=== PATIENT | male | born 1970 | race African-American/Black ===

== ENCOUNTER 2020-04-08 09:46 | Observation (INO) ==
[2020-04-08 10:23] LABS: Basophils # 0.1 10*3/uL (0.0-0.2); Basophils % 0.4 % (0.0-0.8); Eosinophils # 0.1 10*3/uL (0.0-0.87); Eosinophils % 1.1 % (0.00-10.9); Hematocrit 40.2 VOL% (42.0-52.0); Immature Granulocytes % 0.4 %; Immature Granulocytes Absolute 0.04 #; Lymphocytes # 3.2 10*3/uL (1.4-4.0); Lymphocytes % 28.1 % (21.2-54.2); Mean Corpuscular HGB Conc 32.3 GM/DL (32-36); Mean Corpuscular Volume 92.8 FL (87-102); Mean Platelet Volume 9.3 FL (9.6-12.0); Monocytes % 7.2 % (1.7-12.7); Neutrophils % 62.8 % (38.7-73.9); Platelet Count 355 T/CUMM (130-400); Red Blood Count 4.33 MC/CUMM (3.8-5.5); Red Cell Distribution Width 15.9 % (9.3-17.3); White Blood Count 11.4 T/CUMM (4-12)
[2020-04-08] MEDS ORDERED: ASPIRIN 325 MG TABLET PO STA (10:39)
[2020-04-08 10:44] LABS: Albumin 4.3 G/DL (3.4-5.0); Bilirubin,Total 0.4 MG/DL (0.2-1.0); Osmolality,Calculated 273.7 MOS/KG (273-304); Total Protein 7.6 G/DL (6.4-8.3)
[2020-04-08] MEDS ORDERED: POTASSIUM CHLORIDE 20 MEQ TABLET PO STA (11:38)
[2020-04-08] MEDS ORDERED: DOCUSATE SODIUM 100 MG CAPSULE PO PRN (12:09)
[2020-04-08] MEDS ORDERED: DEXTROSE 50% 25 GM/50 ML VIAL IV PRN ×2 (12:09→14:54)
[2020-04-08] MEDS ORDERED: GLUCAGON 1 MG VIAL IM PRN ×2 (12:09→14:54)
[2020-04-08] MEDS ORDERED: ONDANSETRON 4 MG/2 ML VIAL IV PRN (12:09)
[2020-04-08] MEDS ORDERED: ACETAMINOPHEN 325 MG TABLET PO PRN (12:09)
[2020-04-08] MEDS ORDERED: NICOTINE 21 MG/24 HR PATCH TRANSDERM PRN (12:21)
[2020-04-08] MEDS ORDERED: ENOXAPARIN 40 MG/0.4 ML SYRINGE SUBCUT SCH (12:30)
[2020-04-08 13:12] LABS: Risk Ratio 2.84; Thyroid Stimulating Hormone 0.799 uIU/ml (0.358-3.74); VLDL CHOLESTEROL 22.2 MG/DL
[2020-04-08] MEDS ORDERED: KETOROLAC 30 MG/1 ML VIAL IV ONE (13:53)
[2020-04-08] MEDS ORDERED: ALUMINUM/MAGNES/SIMETH MAX STR 30 ML UDCUP PO PRN (14:53)
[2020-04-08] MEDS: INSULIN LISPRO 100 UNIT/ML SUBCUT SCH ×2 (17:12→20:04)
[2020-04-09 06:17] LABS: Basophils % 0.5 % (0.0-0.8); Eosinophils # 0.1 10*3/uL (0.0-0.87); Eosinophils % 1.9 % (0.00-10.9); Hematocrit 38.2 VOL% (42.0-52.0); Hemoglobin 12.7 GM/DL (14.0-18.0); Immature Granulocytes % 0.4 %; Immature Granulocytes Absolute 0.03 #; Lymphocytes # 2.8 10*3/uL (1.4-4.0); Lymphocytes % 37.3 % (21.2-54.2); Mean Corpuscular HGB Conc 33.2 GM/DL (32-36); Mean Corpuscular Volume 92.5 FL (87-102); Mean Platelet Volume 9.7 FL (9.6-12.0); Monocytes % 9.3 % (1.7-12.7); Neutrophils % 50.6 % (38.7-73.9); Platelet Count 310 T/CUMM (130-400); Red Blood Count 4.13 MC/CUMM (3.8-5.5); Red Cell Distribution Width 16.1 % (9.3-17.3); White Blood Count 7.4 T/CUMM (4-12)
[2020-04-09 06:30] LABS: Calcium 8.8 MG/DL (8.5-10.1); Osmolality,Calculated 282.3 MOS/KG (273-304)
[2020-04-09] MEDS ORDERED: POTASSIUM CHLORIDE 20 MEQ TABLET PO ONE (08:19)
[2020-04-09] MEDS: INSULIN LISPRO 100 UNIT/ML SUBCUT SCH (08:40)
[2020-04-09] MEDS ORDERED: PANTOPRAZOLE 40 MG TABLET PO SCH (09:00)
[2020-04-09 09:41] VITALS: BP 116/71
== END 2020-04-09 11:19 | disposition home or self-care (01) ==
LOC: N.ED 09:46 → N.EDINP 09:46 → N.TELEN 16:03
PROVIDERS: ADMIT Internal Medicine; ATTEND Internal Medicine